=== PATIENT | female | born 1995 | race Caucasian/White ===

== ENCOUNTER → 2025-03-06 09:29 | Outpatient (REF) | payer OTHER, SELFPAY | LOC: MRI 09:29 | PROVIDERS: ATTENDING PHYSICIAN Nurse Practitioner Family | DX: R19.00 Intra-abdominal and pelvic swelling, mass and lump, unspecified site (principal) | CPT/HCPCS: 72197; A9575 ==

== ENCOUNTER 2025-04-18 06:32 | Day surgery (SDC) | payer OTHER, SELFPAY ==
[2025-04-18] VITALS (7 sets, daily range): BP systolic 95–121; BP diastolic 53–72; BMI 40.3
[2025-04-18] MEDS: TYLENOL 1000 MG PO (10:36)
[2025-04-18] MEDS: NORMOSOL-R/PLASMALYTE-A 1000 IV (10:46)
[2025-04-18] MEDS: EMEND 40 MG PO (11:17)
== END 2025-04-18 15:51 | disposition home or self-care (01) ==
LOC: SDS 06:32
PROVIDERS: ATTENDING PHYSICIAN Surgery
DX: K40.90 Unilateral inguinal hernia, without obstruction or gangrene, not specified as recurrent (principal); N94.89 Other specified conditions associated with female genital organs and menstrual cycle; L72.0 Epidermal cyst
CPT/HCPCS: 49650; 49322; 88304; C1781